=== PATIENT | female | born 1960 | race Caucasian/White ===

== ENCOUNTER 2018-02-04 02:29 | Emergency (ER) | payer OTHER ==
[2018-02-04] MEDS: NS 500 ML IV (03:00)
[2018-02-04 03:03] LABS: BASO % 0.5 % (0.0-1.0); EOS # 0.2 10^3/uL (0.0-0.50); EOS % 2.2 % (0.0-3.0); HEMATOCRIT 48.7 % (36.0-47.0); IMMATURE GRANULOCYTE % 0.3 % (0-3.0); LYMPH # 1.9 10^3/uL (1.5-4.5); LYMPH % 21.8 % (24.0-44.0); MEAN CORPUSCULAR HEMOGLOBIN 28.9 pg (27.0-33.0); MEAN CORPUSCULAR HGB CONC 32.9 g/dl (32.0-36.5); MEAN CORPUSCULAR VOLUME 88.1 fl (80.0-96.0); MONO # 0.7 10^3/uL (0.0-0.8); MONO % 7.6 % (0.0-5.0); NEUTROPHILS # 5.8 10^3/uL (1.8-7.7); NEUTROPHILS % 67.6 % (36.0-66.0); PLATELET COUNT, AUTOMATED 268 10^3/uL (150-450); RED BLOOD COUNT 5.53 10^6/uL (4.00-5.40); RED CELL DISTRIBUTION WIDTH 12.7 % (11.5-14.5); WHITE BLOOD COUNT 8.6 10^3/uL (4.0-10.0)
[2018-02-04] MEDS: ONDANSETRON 4MG/2ML VIAL (J2405) IV (03:04)
[2018-02-04] MEDS: MORPHINE 4 MG/ML 1ML VIAL/SYRINGE (J2270) IV (03:04)
[2018-02-04 03:24] LABS: KETONE, URINE AUTO RFX NEGATIVE (NEGATIVE); MUCUS, URINE RFX SMALL (NEGATIVE); NITRITE, URINE AUTO RFX NEGATIVE (NEGATIVE); RBC, URINE AUTO RFX 83 /HPF (0-3); SQUAM EPITHELIAL CELL UR AURFX 3 /HPF (0-6)
[2018-02-04 03:25] LABS: ALBUMIN 3.9 GM/DL (3.2-5.2); ALBUMIN/GLOBULIN RATIO 0.98 (1.00-1.93); ALKALINE PHOSPHATASE 109 U/L (45-117); ALT/SGPT 23 U/L (12-78); ANION GAP 6 MEQ/L (8-16); AST/SGOT 25 U/L (7-37); BILIRUBIN,DIRECT 0.1 MG/DL (0.0-0.2); BILIRUBIN,TOTAL 0.4 MG/DL (0.2-1.0); BLOOD UREA NITROGEN 18 MG/DL (7-18); CALCIUM LEVEL 9.6 MG/DL (8.5-10.1); CARBON DIOXIDE LEVEL 28 MEQ/L (21-32); CHLORIDE LEVEL 109 MEQ/L (98-107); CREATININE FOR GFR 0.75 MG/DL (0.55-1.30); GLOMERULAR FILTRATION RATE > 60.0 (>51); GLUCOSE, FASTING 109 MG/DL (70-100); LIPASE 170 U/L (73-393); POTASSIUM SERUM 4.1 MEQ/L (3.5-5.1); SODIUM LEVEL 143 MEQ/L (136-145); TOTAL PROTEIN 7.9 GM/DL (6.4-8.2)
[2018-02-04 03:26] LABS: LEUKOCYTE ESTERASE UR AUTO RFX 3+ (NEGATIVE); WBC, URINE AUTO RFX 29 /HPF (0-3)
[2018-02-04] MEDS: KETOROLAC 30 MG/ML VIAL (J1885) IV (05:11)
[2018-02-04] MEDS: TAMSULOSIN 0.4 MG CAP PO (05:11)
[2018-02-04] MEDS: OXYCODONE/APAP 5MG/325MG(BULK FOR ED) 1 TABLET PO (06:00)
== END 2018-02-04 06:07 | disposition home or self-care (01) ==
LOC: M ED 02:29
DX: N20.1 Calculus of ureter (principal); N20.0 Calculus of kidney; N13.2 Hydronephrosis with renal and ureteral calculous obstruction
CPT/HCPCS: J2270

== ENCOUNTER 2018-09-21 18:26 | Day surgery (SDC) | payer OTHER ==
[2018-09-21 19:02] LABS: BASO % 0.2 % (0.0-1.0); EOS # 0.2 10^3/uL (0.0-0.50); EOS % 1.8 % (0.0-3.0); HEMATOCRIT 47.1 % (36.0-47.0); HEMOGLOBIN 15.4 g/dl (12.0-15.5); IMMATURE GRANULOCYTE % 0.5 % (0-3.0); LYMPH % 16.6 % (24.0-44.0); MEAN CORPUSCULAR HEMOGLOBIN 29.2 pg (27.0-33.0); MEAN CORPUSCULAR HGB CONC 32.7 g/dl (32.0-36.5); MEAN CORPUSCULAR VOLUME 89.2 fl (80.0-96.0); MONO # 1.2 10^3/uL (0.0-0.8); MONO % 9.9 % (0.0-5.0); NEUTROPHILS # 8.6 10^3/uL (1.8-7.7); PLATELET COUNT, AUTOMATED 264 10^3/uL (150-450); RED BLOOD COUNT 5.28 10^6/uL (4.00-5.40); RED CELL DISTRIBUTION WIDTH 12.6 % (11.5-14.5); WHITE BLOOD COUNT 12.1 10^3/uL (4.0-10.0)
[2018-09-21] MEDS: ONDANSETRON 4MG/2ML VIAL (J2405) IV (19:04)
[2018-09-21] MEDS: KETOROLAC 30 MG/ML VIAL (J1885) IV (19:04)
[2018-09-21] MEDS: NS 1,000 ML IV (19:04)
[2018-09-21 19:42] LABS: ALBUMIN 3.9 GM/DL (3.2-5.2); ALBUMIN/GLOBULIN RATIO 1.15 (1.00-1.93); ALKALINE PHOSPHATASE 107 U/L (45-117); ALT/SGPT 20 U/L (12-78); ANION GAP 7 MEQ/L (8-16); AST/SGOT 25 U/L (7-37); BILIRUBIN,DIRECT 0.1 MG/DL (0.0-0.2); BILIRUBIN,TOTAL 0.3 MG/DL (0.2-1.0); BLOOD UREA NITROGEN 17 MG/DL (7-18); CALCIUM LEVEL 8.4 MG/DL (8.5-10.1); CARBON DIOXIDE LEVEL 29 MEQ/L (21-32); CHLORIDE LEVEL 106 MEQ/L (98-107); CREATININE FOR GFR 0.95 MG/DL (0.55-1.30); GLOMERULAR FILTRATION RATE > 60.0 (>51); GLUCOSE, FASTING 111 MG/DL (70-100); LIPASE 138 U/L (73-393); POTASSIUM SERUM 3.8 MEQ/L (3.5-5.1); SODIUM LEVEL 142 MEQ/L (136-145); TOTAL PROTEIN 7.3 GM/DL (6.4-8.2)
[2018-09-21 20:16] LABS: KETONE, URINE AUTO RFX NEGATIVE (NEGATIVE); MUCUS, URINE RFX SMALL (NEGATIVE); NITRITE, URINE AUTO RFX NEGATIVE (NEGATIVE); RBC, URINE AUTO RFX 94 /HPF (0-3); SPECIFIC GRAVITY UR AUTO RFX 1.018 (1.002-1.035); SQUAM EPITHELIAL CELL UR AURFX 5 /HPF (0-6)
[2018-09-21 20:28] LABS: LEUKOCYTE ESTERASE UR AUTO RFX 3+ (NEGATIVE); WBC, URINE AUTO RFX 17 /HPF (0-3)
[2018-09-21] MEDS: CIPROFLOXACIN/D5W 400 MG/200 ML BAG (J0744) As Ordered (22:51)
[2018-09-21] MEDS ORDERED: LIDOCAINE 2% INJ 100 MG/5 ML SDV (FOR ANES.) As Ordered (22:56)
[2018-09-21] MEDS ORDERED: MIDAZOLAM INJ 2 MG/2 ML VIAL (J2250) As Ordered (22:56)
[2018-09-21] MEDS ORDERED: PROPOFOL 200 MG/20 ML VIAL As Ordered (22:56)
[2018-09-21] MEDS ORDERED: dexameTHASONE 4 MG/ML 1ML VIAL (J1100) As Ordered (22:56)
[2018-09-21] MEDS ORDERED: fentaNYL 100 MCG/2 ML INJECTION (J3010) As Ordered (22:56)
[2018-09-21] MEDS: CONRAY-60 60% 50ML VIAL (Q9961) As Ordered (23:00)
[2018-09-21] MEDS ORDERED: METHYLENE BLUE 0.5% (5MG/ML) 10 ML AMP (PROVAYBLUE)(Q9968 PER 1MG) As Ordered (23:09)
[2018-09-22] MEDS: D5W/0.45% SODIUM CHLORIDE 1,000 ML IV (01:00)
[2018-09-22] MEDS ORDERED: METOCLOPRAMIDE INJ 10MG/2ML VIAL (J2765) IV (01:00)
[2018-09-22] MEDS ORDERED: MEPERIDINE INJ 25 MG/ML VIAL (J2175) IV (01:00)
[2018-09-22] MEDS ORDERED: ONDANSETRON 4MG/2ML VIAL (J2405) IV (01:00)
[2018-09-22] MEDS ORDERED: fentaNYL 100 MCG/2 ML INJECTION (J3010) IV (01:00)
[2018-09-22] MEDS ORDERED: PERCOCET 5MG/325MG TAB PO (01:00)
[2018-09-22] MEDS ORDERED: LR 1,000 ML IV (01:00)
[2018-10-02 10:12] LABS: CA Oxalate Dihy 40 % (.); Ca Ox Monohydrate 55 % (.)
== END 2018-09-22 02:30 | disposition home or self-care (01) ==
LOC: M MS5PR 09-22 01:30 → M SDC 09-22 02:30 → M ED 18:26 → M SDC 22:09
DX: N20.1 Calculus of ureter (principal); M12.9 Arthropathy, unspecified; Z72.0 Tobacco use; Z87.81 Personal history of (healed) traumatic fracture
CPT/HCPCS: 52356

== ENCOUNTER → 2018-09-28 | Outpatient (CLI) | payer OTHER ==
[2018-09-28 15:40] LABS: APPEARANCE, URINE HAZY (CLEAR); BACTERIA, URINE AUTO 1+ (NEGATIVE); BILIRUBIN, URINE AUTO NEGATIVE (NEGATIVE); BLOOD, URINE BLOOD 3+ (NEGATIVE); COLOR, URINE YELLOW (YELLOW); GLUCOSE, URINE (UA) AUTO NEGATIVE (NEGATIVE); KETONE, URINE AUTO NEGATIVE (NEGATIVE); LEUKOCYTE ESTERASE, URINE AUTO TRACE (NEGATIVE); MUCUS, URINE SMALL (NEGATIVE); NITRITE, URINE AUTO NEGATIVE (NEGATIVE); PROTEIN, URINE AUTO NEGATIVE (NEGATIVE); RBC, URINE AUTO TNTC /HPF (0-3); SQUAMOUS EPITHELIAL CELL UR AU 0 /HPF (0-6); UROBILINOGEN, URINE AUTO 0.2 mg/dL (0.0-2.0); WBC, URINE AUTO 13 /HPF (0-3)
== END ==
LOC: M LAB 15:10
DX: N20.0 Calculus of kidney (principal)
CPT/HCPCS: 81001

== ENCOUNTER → 2018-09-30 | Outpatient (CLI) | payer OTHER, SELFPAY | LOC: M LRY 14:44 | DX: S52.134A Nondisplaced fracture of neck of right radius, initial encounter for closed fracture (principal); M85.822 Other specified disorders of bone density and structure, left upper arm; W01.198A Fall on same level from slipping, tripping and stumbling with subsequent striking against other object, initial encounter; Y92.9 Unspecified place or not applicable | CPT/HCPCS: 73060 ==

== ENCOUNTER 2019-04-17 07:32 | Emergency (ER) | payer OTHER ==
[~2019-04-17] VITALS: Ht 160 cm; Wt 70.9 kg
[~2019-04-17 07:32] MED LIST: CIPR-249 PO; FLOM0.4C39 PO; LORT5TAB PO; MOTR200T44 PO; MULT1TAB15 PO; OS-CCHW2 PO; PERC5TAB12 PO
[2019-04-17] MEDS ORDERED: ACETAMINOPHEN 325 MG TAB PO ONE (08:15)
--- NOTE | 2019-04-17 08:49 | REP ---
Clinical: Back pain. Sciatica. Technique: AP, lateral, bilateral oblique and coned-down views of the lumbosacral spine. Findings: Moderate generalized osteopenia noted. Alignment and lordosis maintained. No acute fracture / compression injury or subluxation. Diffuse hypertrophic facet changes are noted throughout the visualized lumbosacral spine along with moderate disc space narrowing and L5-S1. Impression: Osteopenia and degenerative changes. Electronically Signed by Juan Francisco Westbrook MD 04/17/2019 08:41 A
[2019-04-17] MEDS ORDERED: NAPR-885 PO (09:37)
[2019-04-17 09:56] VITALS: BP 155/74
== END 2019-04-17 09:57 | disposition home or self-care (01) ==
LOC: M ED 07:32
DX: M54.5 Low back pain (principal); M25.552 Pain in left hip; M85.9 Disorder of bone density and structure, unspecified; M17.11 Unilateral primary osteoarthritis, right knee; F17.210 Nicotine dependence, cigarettes, uncomplicated

== ENCOUNTER → 2019-10-31 | Outpatient (CLI) | payer OTHER ==
[~2019-10-31] MED LIST changes: +NAPR-885 PO
--- NOTE | 2019-10-31 19:09 | REPPI ---
KUB: Two views. History: Cystocele. Comparison radiographs are from April 17, 2019. Findings: Bowel gas pattern is normal. Psoas margins and flank stripes are intact. There are advanced degenerative changes in the lumbar spine. There is no evidence of mass, organomegaly, or pathologic calcification. Impression: Unremarkable KUB. Degenerative spondylosis changes in the lumbar spine. Electronically Signed by Vladimir Meza MD 11/01/2019 05:38 A
== END ==
LOC: M PLAIMG 15:00
PROVIDERS: ATTEND Specialist
DX: N81.10 Cystocele, unspecified (principal); M47.816 Spondylosis without myelopathy or radiculopathy, lumbar region

== ENCOUNTER → 2021-01-14 | Outpatient (CLI) | payer OTHER ==
--- NOTE | 2021-01-14 17:48 | REP ---
INDICATION: PAIN, POSS BONE SPUR. COMPARISON: None. TECHNIQUE: Four views of the left foot. FINDINGS: Four views of the left foot demonstrate overall normal mineralization. Bones, joints and soft tissues are unremarkable. There is a tiny plantar calcaneal spur. Joint spaces are preserved. No erosive changes seen.. No fracture or subluxation is seen. No opaque foreign body noted. IMPRESSION: Tiny heel spur. Otherwise negative left foot radiographs.. <Electronically signed by Ministerio Meza > 01/14/21 [id number]
== END ==
LOC: M WUC 15:38
PROVIDERS: ATTEND Physician Assistant Medical
DX: M77.31 Calcaneal spur, right foot (principal)

== ENCOUNTER → 2021-02-04 | Outpatient (CLI) | payer OTHER ==
--- NOTE | 2021-02-04 15:18 | REPMRS ---
Patient History The patient states she has not had a clinical breast exam in over a year. Patient is postmenopausal. Took hormonal contraceptives for 1 year. Digital Woman Screen Mammo: February 04, 2021 - Exam #: [id number] Bilateral CC and MLO view(s) were taken. Technologist: RT Kimberly Prior study comparison: December 10, 2018, bilateral digital mammo screening bilat, performed at [facility]. June 16, 2016, bilateral digital mammo screening bilat, performed at [facility]. FINDINGS: The breast tissue is heterogeneously dense. This may lower the sensitivity of mammography. The Volpara volumetric breast density category is: C. There is a moderate amount of heterogeneously dense fibroglandular tissue which is fairly symmetric. There is no interval development of dominant mass, architectural distortion, or grouped microcalcification typical of malignancy. There has been no change in the appearance of the mammogram from the prior studies. 3-D tomosynthesis shows no additional findings. Assessment: BI-RADS/ACR category 1 mammogram. Negative Mammogram. Recommendation Routine screening mammogram of both breasts in 1 year (for women over age 40). This patient's [facility] Lifetime Breast Cancer RIsk is estimated at 7.5 %. This mammogram was interpreted with the aid of an FDA-approved computer-aided dectection system. Electronically Signed By: Ministerio Meza MD 02/04/21 [id number]
== END ==
LOC: M WHC 13:28
PROVIDERS: ATTEND Physician Assistant Medical
DX: Z12.31 Encounter for screening mammogram for malignant neoplasm of breast (principal)

== ENCOUNTER 2021-02-13 12:09 | Emergency (ER) | payer OTHER ==
[~2021-02-13] VITALS: Ht 160 cm; Wt 72.7 kg
--- NOTE | 2021-02-13 13:00 | REP ---
INDICATION: CHEST PAIN COMPARISON: 08/21/2008 TECHNIQUE: Portable AP view of the chest FINDINGS: The mediastinum and cardiac silhouette are stable and within normal limits for portable technique. The lung machado demonstrate chronic appearing changes. Superimposed right lower lobe atelectasis cannot be excluded. No discrete focal consolidation, effusion, or pneumothorax. Skeletal structures intact. IMPRESSION: Chronic changes. Cannot exclude subtle right basilar atelectasis. <Electronically signed by Juan Farncisco Westbrook > 02/13/21 [id number]
[2021-02-13 13:23] LABS: BASO % 0.4 % (0.0-1.0); EOS # 0.2 10^3/uL (0.0-0.5); EOS % 2.2 % (0.0-3.0); HEMATOCRIT 47.3 % (36.0-47.0); LYMPH # 1.8 10^3/uL (1.5-5.0); LYMPH % 25.2 % (24.0-44.0); MEAN CORPUSCULAR HEMOGLOBIN 28.5 pg (27.0-33.0); MEAN CORPUSCULAR HGB CONC 31.7 g/dl (32.0-36.5); MEAN CORPUSCULAR VOLUME 89.9 fl (80.0-96.0); MONO # 0.6 10^3/uL (0.0-0.8); MONO % 7.8 % (2.0-8.0); NEUTROPHILS # 4.6 10^3/uL (1.5-8.5); NEUTROPHILS % 64.1 % (36.0-66.0); PLATELET COUNT, AUTOMATED 245 10^3/uL (150-450); RED BLOOD COUNT 5.26 10^6/uL (4.00-5.40); WHITE BLOOD COUNT 7.2 10^3/uL (4.0-10.0)
[2021-02-13] MEDS ORDERED: ISOVUE-370 76% 100ML VIAL As Ordered ONE (13:31)
[2021-02-13 13:33] LABS: INR 0.97; PROTHROMBIN TIME 13.1 SECONDS (12.5-14.3)
[2021-02-13 13:34] LABS: PARTIAL THROMBOPLASTIN TIME 25.7 SECONDS (24.2-38.5)
[2021-02-13 14:02] LABS: ALBUMIN 3.5 GM/DL (3.2-5.2); ALT/SGPT 16 U/L (12-78); BILIRUBIN,DIRECT 0.1 MG/DL (0.0-0.2); BILIRUBIN,TOTAL 0.3 MG/DL (0.2-1.0); CK-MB VALUE MASS 1.1 NG/ML (<3.6); CPK CREATINE PHOSPHOKINASE 69 U/L (26-192); FREE T4 1.09 NG/DL (0.76-1.46); LIPASE 103 U/L (73-393); MB/CK RELATIVE INDEX 1.59 (< OR =4); TOTAL PROTEIN 6.7 GM/DL (6.4-8.2); TROPONIN I < 0.02 NG/ML (< 0.10)
--- NOTE | 2021-02-13 14:19 | REP ---
INDICATION: chest pain; r/o PE/TAA COMPARISON: None. TECHNIQUE: Axial contrast enhanced images from the thoracic inlet to the upper abdomen using pulmonary embolus technique with multiplanar re-formations. 75 ml Isovue 370 intravenous contrast material administered without complication. This CT examination was performed using the following dose reduction techniques: Automated exposure control, adjustment of mA and/or kv according to the patient's size, and use of iterative reconstruction technique. FINDINGS: Satisfactory enhancement of the pulmonary vasculature is achieved and no filling defects are identified to suggest pulmonary embolus. Further evaluation of the mediastinum demonstrates normal thoracic aorta, heart and pericardium. The bilateral lung machado demonstrate mild dependent changes without consolidation, significant atelectasis, pleural effusion or pneumothorax. Tracheobronchial tree is patent. No nodule or mass lesion is identified. No adenopathy noted. Surrounding musculoskeletal structures intact IMPRESSION: No evidence for pulmonary embolus. No acute mediastinal or pleural parenchymal process. <Electronically signed by Juan Francisco Westbrook > 02/13/21 2525
[2021-02-13] MEDS ORDERED: KETOROLAC 30 MG/ML 1ML VIAL IV ONE (14:25)
[2021-02-13] MEDS ORDERED: diazePAM 10MG/2ML SYRINGE (J3360 PER 5MG) IV ONE (14:25)
[2021-02-13] MEDS ORDERED: GI COCKTAIL 50ML BTL(HYOSCYAMINE/MAALOX/LIDOCAINE VISCOUS)(1:3:1) PO ONE (15:40)
[2021-02-13 16:15] VITALS: BP 137/63
[2021-02-13] MEDS ORDERED: KETO10TAB PO (16:22)
[2021-02-13] MEDS ORDERED: METH-1164 PO (16:22)
--- NOTE | 2021-02-13 22:04 | ECGEPIP ---
[facility] - ED Test Date: 2021-02-13 Pat Name: NAA POST Department: Room: - Gender: Female [employer] Machine Operator: JACK : 1960 Requested By: Mohsen Cooley Order Number: [id number] Reading MD: Amaris Lambert Measurements Intervals [place] Rate: 87 P: 49 DC: 144 QRS: 7 QRSD: 90 T: 45 QT: 376 QTc: 452 Interpretive Statements Normal sinus rhythm increased rate 08/31/16 Electronically Signed on 02-13-2021 22:04:29 EDT by Amaris Lambert
== END 2021-02-13 16:45 | disposition home or self-care (01) ==
LOC: M ED 12:09
DX: R07.89 Other chest pain (principal); Z87.442 Personal history of urinary calculi; F17.200 Nicotine dependence, unspecified, uncomplicated; Z79.899 Other long term (current) drug therapy
CPT/HCPCS: 71045; 71275; 80047; 80076; 82550; 82553; 83690; 84439; 84443; 84484; 85025; 85610; 85730; 93005; 93041; 94760; 96374; 96375; 99285; J1885; J3360; Q9967

== ENCOUNTER → 2021-04-01 | Outpatient (CLI) | payer OTHER ==
[~2021-04-01] MED LIST changes: +KETO10TAB PO; +METH-1164 PO
--- NOTE | 2021-04-03 13:16 | REP ---
INDICATION: POST SEBASTIAN BLEEDING COMPARISON: None. TECHNIQUE: Transabdominal pelvic ultrasound followed by transvaginal examination for better evaluation of the endometrium and adnexa with color Doppler evaluation of the ovaries. FINDINGS: Bladder is unremarkable and measures 14.5 x 8.9 x 10.1 cm. Heterogeneous anteverted uterus measures 8.0 x 4.3 x 4.9 cm with complex thickened endometrium measuring 20 mm with scattered cystic changes. 1 cm right lower uterine segment intramural fibroid noted along with 1.7 cm fundal subserosal fibroid. Ovaries are not visualized. No pelvic fluid or adnexal mass lesion. IMPRESSION: 1. Heterogeneous uterus with few small fibroids as noted above. 2. Complex thickened endometrial measures 20 mm. Findings may reflect hyperplasia. Follow-up and correlation may be warranted. <Electronically signed by Juan Francisco Westbrook > 04/03/21 [id number]
== END ==
LOC: M RAD 09:43
PROVIDERS: ATTEND Nurse Practitioner Adult Health
DX: N95.0 Postmenopausal bleeding (principal); D25.1 Intramural leiomyoma of uterus; D25.2 Subserosal leiomyoma of uterus; R93.89 Abnormal findings on diagnostic imaging of other specified body structures

== ENCOUNTER → 2021-05-14 | Outpatient (CLI) | payer OTHER ==
[~2021-05-14] MED LIST changes: +ALIG4CAP PO; +CVS50CAP PO
== END ==
LOC: M LABSMTC 11:01
PROVIDERS: ATTEND Anesthesiology
DX: Z01.812 Encounter for preprocedural laboratory examination (principal); Z20.822 Contact with and (suspected) exposure to COVID-19

== ENCOUNTER 2021-05-19 07:16 | Day surgery (SDC) | payer OTHER ==
[~2021-05-19] VITALS: Ht 160 cm; Wt 64.0 kg
[~2021-05-19 07:16] MED LIST changes: +LR 1,000 ML IV ONE
[2021-05-19] MEDS ORDERED: MIDAZOLAM INJ 2MG/2ML VIAL (J2250 PER 1MG) As Ordered ONE (07:44)
[2021-05-19] MEDS ORDERED: LIDOCAINE 2% 100MG/5ML SDV (FOR ANES.) As Ordered ONE (07:45)
[2021-05-19] MEDS ORDERED: fentaNYL 100 MCG/2 ML INJECTION (J3010) As Ordered ONE (07:45)
[2021-05-19] MEDS ORDERED: dexameTHASONE 4 MG/ML 1ML VIAL (J1100 PER 1MG) As Ordered ONE (07:45)
[2021-05-19] MEDS ORDERED: ONDANSETRON 4MG/2ML VIAL As Ordered ONE (07:45)
[2021-05-19] MEDS ORDERED: propofoL 200 MG/20 ML VIAL As Ordered ONE (07:45)
[2021-05-19] MEDS ORDERED: KETOROLAC 60MG 2ML VIAL As Ordered ONE (07:45)
[2021-05-19] MEDS ORDERED: ACETAMINOPHEN 1000MG 100ML IV BTL (OFIRMEV) (J0131 PER 10MG) As Ordered ONE (09:05)
[2021-05-19] MEDS ORDERED: ePHEDrine SULFATE 25 MG/5 ML(5MG/ML) SYRINGE As Ordered ONE (09:22)
[2021-05-19] MEDS: LABETALOL 100MG/20ML VIAL IV PRN ×5 (10:00→10:21)
[2021-05-19] MEDS ORDERED: fentaNYL 100 MCG/2 ML INJECTION (J3010) IV PRN (10:05)
[2021-05-19] MEDS ORDERED: LR 1,000 ML IV SCH (10:05)
[2021-05-19] MEDS ORDERED: ONDANSETRON 4MG/2ML VIAL IV PRN (10:05)
[2021-05-19] MEDS ORDERED: oxyCODONE 5MG TAB PO PRN (10:05)
[2021-05-19 10:21] VITALS: BP 174/74
[2021-05-19] MEDS ORDERED: LABETALOL 100MG/20ML VIAL As Ordered ONE (10:28)
[2021-05-19 11:35] VITALS: BP 184/83
--- NOTE | 2021-05-19 17:48 | RO ---
OPERATIVE NOTE DATE OF OPERATION: 05/19/2021 PREOPERATIVE DIAGNOSIS: Postmenopausal bleeding, abnormal sonogram, and cervical polyps. POSTOPERATIVE DIAGNOSIS: Postmenopausal bleeding, abnormal sonogram, and cervical polyps. PROCEDURE: D&C, hysteroscopy, and MyoSure with removal of several intrauterine polyps, four, and then removal of cervical polyps with the Bovie, six of them. SURGEON: Rowena Waters MD HEALTH/SAFETY JOB TITLES: None. ANESTHESIA: LMA. SPECIMEN: BRIEF DESCRIPTION OF PROCEDURE AND FINDINGS: Oracio was brought to the operating room where sufficient LMA anesthesia was induced. She was prepped, draped, and positioned in the usual sterile fashion. She does have some prolapse and under traction under anesthesia, the cervix can be brought to the introitus. There is a reasonably sized midline cystocele. The bladder was emptied. The cervix was carefully dilated, the MyoSure device placed, and several endometrial polyps were noted and removed with the MyoSure. There were four of them. As noted in the operative photos, pictures were taken and complete resection was achieved and of course the endometrium sampled as well. We turned our attention to the polyps which were grasped and the Bovie cautery was used to remove them with care taken not to injure the surrounding tissues. There were six polyps removed and sent and then a couple of mm sized polyps just cauterized because they were simply too small to achieve a pathologic sample. There was good hemostasis and all of this and the procedure was ended. Samples were sent separately. ESTIMATED BLOOD LOSS: Maybe 4 mL. FLUID REPLACEMENT: Crystalloid. COMPLICATIONS: None. CONDITION AND DISPOSITION: Oracio tolerated the procedure well and was recovering in the recovery room in good condition.
== END 2021-05-19 11:49 | disposition home or self-care (01) ==
LOC: M SDC 07:16
PROVIDERS: ATTEND Obstetrics & Gynecology
DX: N95.0 Postmenopausal bleeding (principal); N84.0 Polyp of corpus uteri; N84.1 Polyp of cervix uteri
CPT/HCPCS: 58558; 88305; J0131; J1100; J1885; J2250; J2405; J3010

== ENCOUNTER → 2022-02-10 | Outpatient (REF) | payer OTHER ==
[~2022-02-10] MED LIST changes: -LR 1,000 ML IV ONE
== END ==
LOC: M LAB REF 12:19
PROVIDERS: ATTEND Physician Assistant Medical
DX: R10.12 Left upper quadrant pain (principal)

== ENCOUNTER → 2022-06-30 | Outpatient (CLI) | payer OTHER | LOC: M SOG 09:00 | PROVIDERS: ATTEND Orthopaedic Surgery Adult Reconstructive Orthopaedic Surgery | DX: M17.11 Unilateral primary osteoarthritis, right knee (principal) ==

== ENCOUNTER → 2022-07-21 | Outpatient (RCR) | payer OTHER | LOC: M PT 09:26 | PROVIDERS: ATTEND Orthopaedic Surgery Adult Reconstructive Orthopaedic Surgery | DX: M17.11 Unilateral primary osteoarthritis, right knee (principal) ==

== ENCOUNTER → 2022-08-04 | Outpatient (CLI) | payer OTHER | LOC: M RAD 09:22 | PROVIDERS: ATTEND Orthopaedic Surgery Adult Reconstructive Orthopaedic Surgery | DX: M17.11 Unilateral primary osteoarthritis, right knee (principal) ==

== ENCOUNTER → 2022-08-13 | Outpatient (CLI) | payer OTHER | LOC: M LABSMTC 11:14 | PROVIDERS: ATTEND Anesthesiology | DX: Z01.812 Encounter for preprocedural laboratory examination (principal); Z20.822 Contact with and (suspected) exposure to COVID-19 ==

== ENCOUNTER 2022-08-15 08:45 | Observation (INO) | payer OTHER ==
[~2022-08-15] VITALS: Ht 160 cm; Wt 72.3 kg
[2022-08-15] VITALS (8 sets, daily range): BP systolic 147–162; BP diastolic 73–81; O2SAT 93–95
[~2022-08-15 08:45] MED LIST changes: +ACETAMINOPHEN 500 MG TAB PO ONE; +NAPROXEN 250 MG TAB PO ONE; +NS 1,000 ML IV ONE; +PREGABALIN 25 MG CAP (LYRICA) PO ONE; +ROPIVA 125MG/EPINEPH 0.25MG/CLONID 40MCG/KETOR 15MG IN NS 50ML SYRINGE PA ONE; +ceFAZolin SOD 2 GM in IV 1 EA IV ONE; +dexameTHASONE 4 MG/ML 1ML VIAL (J1100 PER 1MG) IV ONE
[2022-08-15] MEDS ORDERED: LR 1,000 ML IV SCH (09:05)
[2022-08-15] MEDS ORDERED: TRANEXAMIC ACID 100 MG/ML 10ML VIAL As Ordered ONE (10:03)
[2022-08-15] MEDS ORDERED: MIDAZOLAM INJ 2MG/2ML VIAL (J2250 PER 1MG) As Ordered ONE (10:13)
[2022-08-15] MEDS ORDERED: KETOROLAC 60MG 2ML VIAL As Ordered ONE (10:13)
[2022-08-15] MEDS ORDERED: BUPIVACAINE/DEXTROSE 0.75% 2ML AMP As Ordered ONE (10:13)
[2022-08-15] MEDS ORDERED: propofoL 500 MG/50 ML VIAL As Ordered ONE (10:13)
[2022-08-15] MEDS ORDERED: fentaNYL 100 MCG/2 ML INJECTION As Ordered ONE (10:13)
[2022-08-15] MEDS ORDERED: dexameTHASONE 4 MG/ML 1ML VIAL (J1100 PER 1MG) As Ordered ONE (10:13)
[2022-08-15] MEDS ORDERED: LIDOCAINE 2% 100MG/5ML SDV (FOR ANES.) As Ordered ONE (10:13)
[2022-08-15] MEDS ORDERED: PHENYLEPHRINE 10MG/ML 1ML VIAL (J2370 PER 1) As Ordered ONE (11:00)
[2022-08-15] MEDS ORDERED: ONDANSETRON 4MG 2ML VIAL As Ordered ONE (11:00)
[2022-08-15] MEDS ORDERED: LIDOCAINE PRES-FREE 2% 10ML AMP As Ordered ONE (11:00)
[2022-08-15] MEDS ORDERED: HYDROmorphone HCL 2MG/ML 1ML VIAL As Ordered ONE (11:26)
[2022-08-15] MEDS ORDERED: ONDANSETRON 4MG 2ML VIAL IV PRN ×2 (13:15→14:35)
[2022-08-15] MEDS: fentaNYL 100 MCG/2 ML INJECTION IV PRN ×4 (13:36→14:16)
[2022-08-15] MEDS: oxyCODONE 5MG TAB PO PRN ×2 (14:10→14:52)
[2022-08-15 14:20] LABS: BASO % 0.3 % (0.0-1.0); EOS % 0.5 % (0.0-3.0); HEMATOCRIT 42.1 % (36.0-47.0); HEMOGLOBIN 13.5 g/dl (12.0-15.5); LYMPH # 1.1 10^3/uL (1.5-5.0); MEAN CORPUSCULAR HEMOGLOBIN 29.3 pg (27.0-33.0); MEAN CORPUSCULAR HGB CONC 32.1 g/dl (32.0-36.5); MEAN CORPUSCULAR VOLUME 91.3 fl (80.0-96.0); MONO # 0.2 10^3/uL (0.0-0.8); MONO % 2.3 % (2.0-8.0); NEUTROPHILS # 6.5 10^3/uL (1.5-8.5); NEUTROPHILS % 82.4 % (36.0-66.0); PLATELET COUNT, AUTOMATED 197 10^3/uL (150-450); RED BLOOD COUNT 4.61 10^6/uL (4.00-5.40); WHITE BLOOD COUNT 7.9 10^3/uL (4.0-10.0)
[2022-08-15] MEDS ORDERED: traMADol 50 MG TAB PO PRN (14:35)
[2022-08-15] MEDS ORDERED: SENNA 8.6 MG TAB (SENOKOT) PO PRN (14:35)
[2022-08-15] MEDS ORDERED: oxyCODONE 5MG TAB PO PRN ×2 (14:35)
[2022-08-15 14:53] LABS: BLOOD UREA NITROGEN 14 MG/DL (7-18); CARBON DIOXIDE LEVEL 24 MEQ/L (21-32); CHLORIDE LEVEL 108 MEQ/L (98-107); CREATININE FOR GFR 0.71 MG/DL (0.55-1.30); GLOMERULAR FILTRATION RATE > 60.0 (>45); GLUCOSE, FASTING 142 MG/DL (70-100); POTASSIUM SERUM 3.8 MEQ/L (3.5-5.1); SODIUM LEVEL 140 MEQ/L (136-145)
[2022-08-15 14:54] LABS: CALCIUM LEVEL 8.1 MG/DL (8.8-10.2)
[2022-08-15] MEDS: NAPROXEN 250 MG TAB PO SCH (15:47)
[2022-08-15] MEDS: ACETAMINOPHEN TAB 650MG DOSE (2X325MG) PO SCH ×2 (15:48→21:14)
[2022-08-15] MEDS: LR 1,000 ML IV SCH ×2 (15:48→20:22)
[2022-08-15] MEDS: ceFAZolin SOD 2 GM in IV 1 EA IV SCH (19:00)
[2022-08-15] MEDS: DOCUSATE SODIUM 100MG CAPSULE PO SCH (21:14)
[2022-08-15] MEDS: ASPIRIN 81MG ENTERIC TABLET PO SCH (21:15)
[2022-08-16 02:10] VITALS: BP 115/58
[2022-08-16] MEDS: ACETAMINOPHEN TAB 650MG DOSE (2X325MG) PO SCH ×3 (03:07→14:24)
[2022-08-16] MEDS: NAPROXEN 250 MG TAB PO SCH ×2 (03:07→14:23)
[2022-08-16] MEDS: ceFAZolin SOD 2 GM in IV 1 EA IV SCH (03:08)
[2022-08-16 06:00] VITALS: BP 114/60
[2022-08-16 06:53] LABS: BASO % 0.1 % (0.0-1.0); EOS % 0.2 % (0.0-3.0); HEMATOCRIT 35.4 % (36.0-47.0); LYMPH # 1.8 10^3/uL (1.5-5.0); LYMPH % 20.6 % (24.0-44.0); MEAN CORPUSCULAR HEMOGLOBIN 29.5 pg (27.0-33.0); MEAN CORPUSCULAR HGB CONC 32.2 g/dl (32.0-36.5); MEAN CORPUSCULAR VOLUME 91.7 fl (80.0-96.0); MONO # 0.8 10^3/uL (0.0-0.8); MONO % 9.4 % (2.0-8.0); NEUTROPHILS % 69.5 % (36.0-66.0); PLATELET COUNT, AUTOMATED 221 10^3/uL (150-450); RED BLOOD COUNT 3.86 10^6/uL (4.00-5.40); WHITE BLOOD COUNT 8.7 10^3/uL (4.0-10.0)
[2022-08-16 07:01] LABS: HEMOGLOBIN 11.4 g/dl (12.0-15.5)
[2022-08-16 07:28] LABS: BLOOD UREA NITROGEN 14 MG/DL (7-18); CARBON DIOXIDE LEVEL 28 MEQ/L (21-32); CHLORIDE LEVEL 104 MEQ/L (98-107); CREATININE FOR GFR 0.64 MG/DL (0.55-1.30); GLOMERULAR FILTRATION RATE > 60.0 (>45); GLUCOSE, FASTING 105 MG/DL (70-100); POTASSIUM SERUM 4.3 MEQ/L (3.5-5.1); SODIUM LEVEL 137 MEQ/L (136-145)
[2022-08-16] MEDS ORDERED: ASPI81TAEC PO (08:21)
[2022-08-16] MEDS ORDERED: NAPR-849 PO (08:21)
[2022-08-16] MEDS ORDERED: OXYC-517 PO ×2 (08:21→11:04)
[2022-08-16 08:30] VITALS: BP 114/60
[2022-08-16] MEDS ORDERED: ASCORBIC ACID 500 MG TAB PO SCH (09:00)
[2022-08-16] MEDS ORDERED: FERROUS SULFATE 325MG TAB PO SCH (09:00)
[2022-08-16] MEDS: DOCUSATE SODIUM 100MG CAPSULE PO SCH (09:02)
[2022-08-16] MEDS: ASPIRIN 81MG ENTERIC TABLET PO SCH (09:06)
[2022-08-16] MEDS: LR 1,000 ML IV SCH (10:35)
[2022-08-16] MEDS ORDERED: MIRA3350 PO (11:05)
[2022-08-16] MEDS ORDERED: COLA100C5 PO (11:06)
[2022-08-16] MEDS ORDERED: oxyCODONE 5MG TAB PO ONE (12:35)
[2022-08-16 14:00] VITALS: BP 115/62
== END 2022-08-16 15:20 | disposition home health service (06) ==
LOC: M SDC 08:45 → M MS5PR 08:46
PROVIDERS: ADMIT Internal Medicine; ATTEND Internal Medicine
DX: M17.11 Unilateral primary osteoarthritis, right knee (principal); F17.218 Nicotine dependence, cigarettes, with other nicotine-induced disorders; Z79.82 Long term (current) use of aspirin; Z79.899 Other long term (current) drug therapy
CPT/HCPCS: 27447; 36415; 73560; 80048; 85025; 88304; 88311; 96365; 96366; 97110; 97161; 97165; 97530; 97535; C1776; J0690; J1100; J1170; J1885; J2250; J2370; J2405; J3010; S2900

== ENCOUNTER → 2022-08-18 | Outpatient (REF) | payer OTHER ==
[~2022-08-18] MED LIST changes: -ACETAMINOPHEN 500 MG TAB PO ONE; +ASPI81TAEC PO; +COLA100C5 PO; +MIRA3350 PO; +NAPR-849 PO; -NAPROXEN 250 MG TAB PO ONE; -NS 1,000 ML IV ONE; +OXYC-517 PO; -PREGABALIN 25 MG CAP (LYRICA) PO ONE; -ROPIVA 125MG/EPINEPH 0.25MG/CLONID 40MCG/KETOR 15MG IN NS 50ML SYRINGE PA ONE; -ceFAZolin SOD 2 GM in IV 1 EA IV ONE; -dexameTHASONE 4 MG/ML 1ML VIAL (J1100 PER 1MG) IV ONE
[2022-08-18 11:28] LABS: BASO % 0.1 % (0.0-1.0); EOS % 0.3 % (0.0-3.0); HEMATOCRIT 34.7 % (36.0-47.0); LYMPH # 1.1 10^3/uL (1.5-5.0); LYMPH % 15.6 % (24.0-44.0); MEAN CORPUSCULAR HEMOGLOBIN 28.7 pg (27.0-33.0); MEAN CORPUSCULAR HGB CONC 31.7 g/dl (32.0-36.5); MEAN CORPUSCULAR VOLUME 90.6 fl (80.0-96.0); MONO # 0.6 10^3/uL (0.0-0.8); MONO % 8.9 % (2.0-8.0); NEUTROPHILS # 5.2 10^3/uL (1.5-8.5); NEUTROPHILS % 74.5 % (36.0-66.0); PLATELET COUNT, AUTOMATED 216 10^3/uL (150-450); RED BLOOD COUNT 3.83 10^6/uL (4.00-5.40)
== END ==
LOC: M SHH 11:07
PROVIDERS: ATTEND Orthopaedic Surgery Adult Reconstructive Orthopaedic Surgery
DX: M17.11 Unilateral primary osteoarthritis, right knee (principal)

== ENCOUNTER → 2022-08-30 | Outpatient (CLI) | payer OTHER | LOC: M SOG 08:02 | PROVIDERS: ATTEND Orthopaedic Surgery Adult Reconstructive Orthopaedic Surgery | DX: M17.11 Unilateral primary osteoarthritis, right knee (principal); Z96.651 Presence of right artificial knee joint ==

== ENCOUNTER → 2022-09-20 | Outpatient (RCR) | payer OTHER | LOC: M PT 14:12 | PROVIDERS: ATTEND Orthopaedic Surgery Adult Reconstructive Orthopaedic Surgery | DX: Z96.651 Presence of right artificial knee joint (principal) ==

== ENCOUNTER 2022-10-20 10:15 | Outpatient (RCR) | payer OTHER ==
[2022-10-31] MEDS ORDERED: BACL10TA2 PO (09:02)
[2022-10-31] MEDS ORDERED: TYLE650T38 PO (09:02)
== END 2022-10-21 ==
LOC: M PT 10:15
PROVIDERS: ATTEND Orthopaedic Surgery Adult Reconstructive Orthopaedic Surgery
DX: Z96.651 Presence of right artificial knee joint (principal)

== ENCOUNTER → 2022-11-02 | Outpatient (CLI) | payer OTHER ==
[~2022-11-02] MED LIST changes: +BACL10TA2 PO; +TYLE650T38 PO
== END ==
LOC: M LABSMTC 09:30
PROVIDERS: ATTEND Anesthesiology
DX: Z01.812 Encounter for preprocedural laboratory examination (principal); Z20.822 Contact with and (suspected) exposure to COVID-19

== ENCOUNTER 2022-11-07 11:50 | Day surgery (SDC) | payer OTHER ==
[~2022-11-07] VITALS: Ht 160 cm; Wt 74.8 kg
[~2022-11-07 11:50] MED LIST changes: +ACETAMINOPHEN 500 MG TAB PO ONE; +CelecoXIB 400 MG CAP PO ONE; +GABAPENTIN 300 MG CAP PO ONE; +ONDANSETRON 4MG 2ML VIAL IV ONE
[2022-11-07] MEDS ORDERED: LR 1,000 ML IV SCH ×2 (12:10→15:10)
[2022-11-07] MEDS ORDERED: propofoL 200 MG/20 ML VIAL As Ordered ONE (12:55)
[2022-11-07] MEDS ORDERED: LIDOCAINE 2% 100MG/5ML SDV (FOR ANES.) As Ordered ONE (12:55)
[2022-11-07] MEDS ORDERED: ONDANSETRON 4MG 2ML VIAL As Ordered ONE (12:55)
[2022-11-07] MEDS ORDERED: MIDAZOLAM INJ 2MG/2ML VIAL IV PRN (13:25)
[2022-11-07] MEDS ORDERED: fentaNYL 100 MCG/2 ML INJECTION IV PRN ×2 (13:25→15:10)
[2022-11-07] MEDS ORDERED: ROPIvacaine 0.5% 30ML VIAL PN ONE (13:25)
[2022-11-07] MEDS ORDERED: LIDOCAINE 1% SDV 5ML VIAL PN ONE (13:25)
[2022-11-07] MEDS ORDERED: OXYC-517 PO (15:06)
[2022-11-07] MEDS ORDERED: SENN8.6T28 PO (15:06)
[2022-11-07] MEDS ORDERED: NAPR-849 PO (15:06)
[2022-11-07] MEDS ORDERED: BACL10TA2 PO (15:06)
[2022-11-07] MEDS ORDERED: ECOT81TA5 PO (15:06)
[2022-11-07] MEDS ORDERED: ONDANSETRON 4MG 2ML VIAL IV PRN (15:10)
[2022-11-07] MEDS: oxyCODONE 5MG TAB PO PRN ×2 (15:19→15:47)
[2022-11-07] MEDS: HYDROMORPHONE HCL 0.5 MG/ 0.5 ML SYRINGE IV PRN ×2 (15:40→15:49)
[2022-11-07 17:05] VITALS: BP 168/88
== END 2022-11-07 17:44 | disposition home or self-care (01) ==
LOC: M SDC 11:50
PROVIDERS: ATTEND Orthopaedic Surgery Adult Reconstructive Orthopaedic Surgery
DX: M24.661 Ankylosis, right knee (principal); Z96.651 Presence of right artificial knee joint; F17.210 Nicotine dependence, cigarettes, uncomplicated; Z79.899 Other long term (current) drug therapy
CPT/HCPCS: 29876; 29881; 64447; 73560; J1100; J2405

== ENCOUNTER → 2022-11-21 | Outpatient (RCR) | payer OTHER ==
[~2022-11-21] MED LIST changes: -ACETAMINOPHEN 500 MG TAB PO ONE; -CelecoXIB 400 MG CAP PO ONE; +ECOT81TA5 PO; -GABAPENTIN 300 MG CAP PO ONE; -ONDANSETRON 4MG 2ML VIAL IV ONE; +SENN8.6T28 PO
== END ==
LOC: M PT 10-23 11:14
PROVIDERS: ATTEND Orthopaedic Surgery Adult Reconstructive Orthopaedic Surgery
DX: Z47.89 Encounter for other orthopedic aftercare (principal); Z96.651 Presence of right artificial knee joint

== ENCOUNTER 2022-12-15 09:30 | Outpatient (RCR) | payer OTHER | END 2022-12-19 | LOC: M PT 09:30 | PROVIDERS: ATTEND Orthopaedic Surgery Adult Reconstructive Orthopaedic Surgery | DX: Z96.651 Presence of right artificial knee joint (principal) ==

== ENCOUNTER 2022-12-29 11:45 | Outpatient (RCR) | payer OTHER | END 2023-01-19 | LOC: M PT 11:45 | PROVIDERS: ATTEND Orthopaedic Surgery Adult Reconstructive Orthopaedic Surgery | DX: Z96.651 Presence of right artificial knee joint (principal) ==

== ENCOUNTER → 2023-08-03 | Outpatient (REF) | payer OTHER ==
[2023-08-03 13:20] LABS: INR 0.97; PARTIAL THROMBOPLASTIN TIME 26.2 SECONDS (24.8-34.2); PROTHROMBIN TIME 12.6 SECONDS (12.5-14.5)
== END ==
LOC: M LAB REF 12:27
PROVIDERS: ATTEND Physician Assistant Medical
DX: R23.3 Spontaneous ecchymoses (principal); M17.11 Unilateral primary osteoarthritis, right knee